=== PATIENT | female | born 1945 | race Caucasian/White ===

== ENCOUNTER 2023-01-22 13:28 | Emergency (ER) | payer OTHER ==
[2023-01-22 13:37] VITALS: BMI 22.8
[2023-01-22] MEDS ORDERED: LISINOPRIL 20 MG TABLET PO ONE (14:33)
[2023-01-22] MEDS ORDERED: LISINOPRIL 20 MG TABLET ONE (14:35)
[2023-01-22 14:41] LABS: BASO % 0.6 % (0-2.0); EOS % 0.9 % (0-4.5); HEMOGLOBIN 14.2 GM/dL (10.7-15.3); LYMPH % 16.8 % (8-40); MCHC 35.4 g/dl (32.0-36.0); MEAN CELL VOLUME 90.4 fl (80-96); MEAN PLT VOLUME 8.4 fl (7.5-11.1); NEUT % 76.7 % (42.8-82.8); PLATELET COUNT 339 10^3/uL (134-434); RBC 4.43 M/mm3 (3.60-5.2); RDW 13.9 % (11.6-15.6); WHITE BLOOD COUNT 7.8 K/mm3 (4.0-10.0)
[2023-01-22] MEDS ORDERED: CARBAMIDE PEROXIDE 6.5% OTIC 15 ML BOTTLE AU ONE (14:48)
[2023-01-22 15:03] LABS: POTASSIUM 4.1 mmol/L (3.5-5.1)
[2023-01-22 15:05] LABS: CALCIUM 9.2 mg/dL (8.5-10.1)
[2023-01-22 15:06] LABS: ALBUMIN 3.9 g/dl (3.4-5.0)
[2023-01-22 15:09] LABS: CREATININE 0.8 mg/dL (0.55-1.3)
[2023-01-22 15:10] LABS: TOT PROT 7.5 g/dl (6.4-8.2)
[2023-01-22 15:11] LABS: BILIRUBIN,TOTAL 0.8 mg/dL (0.2-1)
[2023-01-22 16:35] VITALS: BP 159/89; PULSE 75; RESP 20; TEMP 98.1
== END 2023-01-22 18:50 | disposition left against medical advice (07) ==
LOC: JER 13:28
DX: R42 Dizziness and giddiness (principal); I10 Essential (primary) hypertension; R19.7 Diarrhea, unspecified; F41.9 Anxiety disorder, unspecified; S00.83XA Contusion of other part of head, initial encounter; R94.31 Abnormal electrocardiogram [ECG] [EKG]; R07.9 Chest pain, unspecified; X58.XXXA Exposure to other specified factors, initial encounter; Z20.822 Contact with and (suspected) exposure to COVID-19
CPT/HCPCS: 0241U-QW; 36415; 70486-TC; 70496-TC; 70498-TC; 80053; 84484; 85025; 93005; 93010; 99285-25